=== PATIENT | male | born 1975 | race Hispanic/Latino ===

== ENCOUNTER 2021-05-16 19:22 | Emergency (ER) | payer OTHER, BC ==
[~2021-05-16] VITALS: Ht 170.2 cm; Wt 90.7 kg
[2021-05-16 19:49] VITALS: BP 148/88
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
[2021-05-16] MEDS ORDERED: BOOSTRIX IM ONE ×2 (20:39→21:00)
[2021-05-16 21:00] VITALS: BP 142/77
== END 2021-05-16 21:00 | disposition home or self-care (01) ==
LOC: ER 19:22 → EDBD 19:34 → ER 21:00
DX: S16.1XXA Strain of muscle, fascia and tendon at neck level, initial encounter (principal); S60.512A Abrasion of left hand, initial encounter; S60.511A Abrasion of right hand, initial encounter; V49.9XXA Car occupant (driver) (passenger) injured in unspecified traffic accident, initial encounter; Y93.89 Activity, other specified; Y92.410 Unspecified street and highway as the place of occurrence of the external cause; Y99.8 Other external cause status
CPT/HCPCS: 72040; 90471; 90715; 99283